=== PATIENT | male | born 1980 | race Caucasian/White ===

== ENCOUNTER → 2020-06-13 | Outpatient (CLI) | payer OTHER ==
[~2020-06-13] MED LIST: MEDICAL MARIJUANA
[2020-06-13 08:57] LABS: HEMATOCRIT 44.4 % (42.0-52.0); MEAN CELL VOLUME 88.1 fl (80.0-94.0); MEAN CORPUSCULAR HGB CONC 32.9 g/dl (33.0-37.0); MEAN PLATELET VOLUME 11.6 fl (9.6-12.3); RED BLOOD COUNT 5.04 10*6/uL (4.50-5.90)
[2020-06-13 09:23] LABS: ALBUMIN 4.2 gm/dl (3.1-4.5); BUN 14 mg/dl (7-24); CHLORIDE 108 mmol/L (98-107); CHOLESTEROL 205 mg/dL (<200); CREATININE 1.16 mg/dL (0.70-1.30); POTASSIUM 3.6 mmol/L (3.5-5.1); SGOT/AST 19 IU/L (3-35); SGPT/ALT 51 U/L (12-78); SODIUM 142 mmol/L (136-145); TOTAL PROTEIN 7.9 gm/dL (6.4-8.2); TRIGLYCERIDES 124 mg/dl (<150); VLDL CHOLESTEROL 25 mg/dL (6-40)
[2020-06-13 09:25] LABS: ALKALINE PHOSPHATASE 73 U/L (45-117); HDL CHOLESTEROL 57 mg/dl (40-60); LDL CHOLESTEROL 123 mg/dL (9-159)
== END | disposition home or self-care (01) ==
LOC: LAB 07:47
PROVIDERS: ATTEND Family Medicine
DX: Z13.220 Encounter for screening for lipoid disorders (principal); N30.90 Cystitis, unspecified without hematuria; M54.5 Low back pain; R10.2 Pelvic and perineal pain

== ENCOUNTER 2020-06-30 21:28 | Emergency (ER) | payer OTHER ==
[~2020-06-30] VITALS: Wt 83.9 kg
[2020-06-30] MEDS ORDERED: MEDICAL MARIJUANA (21:48)
[2020-06-30 22:59] LABS: BILIRUBIN Negative (Negative); BLOOD Trace-Lysed (Negative); CLARITY Clear (Clear); COLOR Yellow (Yellow); GLUCOSE Negative (Negative); KETONE Trace (Negative); LEUKO ESTERASE Negative (Negative); NITRITE Negative (Negative); SPECIFIC GRAVITY 1.025 (1.001-1.030)
[2020-06-30 23:24] LABS: BACTERIA TRACE; WBC 0-2 wbc/hpf (0-5)
[2020-06-30 23:25] LABS: MUCOUS TRACE
[2020-06-30 23:46] LABS: BASO % 0.4 % (0.0-1.0); EOS % 0.4 % (1.0-4.0); HEMATOCRIT 39.8 % (42.0-52.0); LYMPH # 1.2 10*3/uL (1.3-4.4); LYMPH % 13.1 % (27.0-41.0); MEAN CELL VOLUME 87.1 fl (80.0-94.0); MEAN CORPUSCULAR HGB 29.3 pg (27.0-31.0); MEAN CORPUSCULAR HGB CONC 33.7 g/dl (33.0-37.0); MEAN PLATELET VOLUME 10.9 fl (9.6-12.3); MONO # 0.7 10*3/uL (0.1-1.0); MONO % 8.2 % (3.0-9.0); NEUT % 77.7 % (47.0-73.0); PLATELET COUNT AUTOMATED 208 10*3/uL (130-400); RED BLOOD COUNT 4.57 10*6/uL (4.50-5.90); RED CELL DISTRI WIDTH 11.7 % (0-14.5)
[2020-07-01 00:02] LABS: ALBUMIN 3.9 gm/dl (3.1-4.5); ALKALINE PHOSPHATASE 73 U/L (45-117); BUN 14 mg/dl (7-24); CHLORIDE 109 mmol/L (98-107); CREATININE 0.94 mg/dL (0.70-1.30); POTASSIUM 3.7 mmol/L (3.5-5.1); SGOT/AST 25 IU/L (3-35); SGPT/ALT 41 U/L (12-78); SODIUM 141 mmol/L (136-145)
== END 2020-07-01 05:56 | disposition home or self-care (01) ==
LOC: ED 21:28
PROVIDERS: Emergency Medicine
DX: R10.9 Unspecified abdominal pain (principal); Z88.8 Allergy status to other drugs, medicaments and biological substances

== ENCOUNTER → 2020-07-25 | Outpatient (CLI) | payer OTHER | END | disposition home or self-care (01) | LOC: CT 13:43 | PROVIDERS: ATTEND Urology | DX: N41.9 Inflammatory disease of prostate, unspecified (principal) ==

== ENCOUNTER 2023-04-18 11:54 | Emergency (ER) | payer OTHER ==
[~2023-04-18] VITALS: Ht 182.8 cm; Wt 93.0 kg
[2023-04-18] MEDS ORDERED: VALTREX500 MG PO (12:12)
== END 2023-04-18 12:09 | disposition home or self-care (01) ==
LOC: ED 11:54
DX: B02.9 Zoster without complications (principal); Z88.1 Allergy status to other antibiotic agents; Z79.899 Other long term (current) drug therapy